=== PATIENT | male | born 1965 | race Caucasian/White ===

== ENCOUNTER 2016-10-04 10:20 | Emergency (ER) | payer OTHER ==
[~2016-10-04] VITALS: Ht 177.8 cm; Wt 56.7 kg
[2016-10-04] MEDS ORDERED: HYDROmorphone HCL 2 MG/ML VL IM ONE (11:00)
[2016-10-04] MEDS ORDERED: ONDANSETRON HCL 4 MG/2 ML VIAL IM ONE (11:00)
[2016-10-04 11:19] VITALS: BP 123/83
== END 2016-10-04 12:20 | disposition home or self-care (01) ==
LOC: EDBD 10:20 → EDUNIT# 10:20 → ER 10:25
DX: S39.012A Strain of muscle, fascia and tendon of lower back, initial encounter (principal); S16.1XXA Strain of muscle, fascia and tendon at neck level, initial encounter; V43.52XA Car driver injured in collision with other type car in traffic accident, initial encounter; Y93.89 Activity, other specified; Y99.8 Other external cause status; Y92.89 Other specified places as the place of occurrence of the external cause
CPT/HCPCS: 72125; 72131; 96372; 99284; J1170; J2405